=== PATIENT | female | born 1975 | race Caucasian/White ===

== ENCOUNTER 2022-09-08 18:37 | Emergency (ER) | payer SELFPAY ==
[~2022-09-08] VITALS: Ht 182 cm; Wt 100.0 kg
[2022-09-08] MEDS ORDERED: NS IV 1000 ML 1,000 ML IV STA ×2 (19:00→20:02)
[2022-09-08] MEDS ORDERED: ONDANSETRON 4 MG/2 ML (SDV) Z0FRAN IVP ONE (19:00)
--- NOTE | 2022-09-08 19:04 | ED General ---
General Chief Complaint: Substance Abuse Stated Complaint: COMING DOWN FROM DRUGS Nursing Triage Note: PT AMB TO [facility] PT CO OF USING POT AND METH TWICE THIS WEEK, STATES FEEL FACE REDDEND. PT CRYING, STATES NOT ABLE TO BEAT ADDICTION. PT IS AT [facility]. PT STATES SOMETHING IN METH STATES DIDNT TASTE THE SAME. PT WAS NOT ABLE TO STAY AT [facility] FOR 2 DAYS. Source of Information: Patient Exam Limitations: No Limitations History of Present Illness Date Seen by Provider: Sep 08, 2022 Time Seen by Provider: 18:50 Initial Comments Patient is a 47yo female who presents to the ER with concern of her meth "having something else in it" that she had last night and early this morning. SHe sta juan that she has recently "fallen off the wagon" and is scheduled to go into [facility] next week. Also complaining of lower abdominal discomfort and painful urination, having a hard time going. She denies F/C/N/V/D. No chest pain or SOB. No abnormal vaginal discharge. [facility] the [facility]". Timing/Duration: 2-3 Days (abdominal discomfort) Severity: Moderate Associated Systoms: Loss of Appetite, Malaise, Other (decreased appetite) Allergies and Home Medications Allergies Coded Allergies: Penicillins (Verified Allergy, Unknown, 09/08/22) latex (Verified Allergy, Unknown, 09/08/22) Patient Home Medication List Home Medication List Reviewed: Yes Review of Systems Review of Systems Constitutional: see HPI EENTM: no symptoms reported Respiratory: no symptoms reported Cardiovascular: no symptoms reported Gastrointestinal: abdominal pain Genitourinary: dysuria, hesitancy Musculoskeletal: no symptoms reported Psychiatric/Neurological: Anxiety All Other Systems Reviewed Negative Unless Noted: Yes Past Lsgowcy-Ivudhe-Auupdh Hx Patient Social History Tobacco Use?: No Use of E-Cig and/or Vaping dev: No Substance use?: Yes Substance type: Methamphetamine, Marijuana Additional substance use comme: IMBOLMING FLUID AND WET Substance frequency: Couple times a week Alcohol Use?: Yes Pt feels they are or have been: No Immunizations Up To Date Influenza Vaccine Up-to-Date: No; Not Current First/Initial COVID19 Vaccinat: YES Second COVID19 Vaccination Maximiliano: YES Third COVID19 Vaccination Date: YES Past Medical History Surgery/Hospitalization HX: C-SECTIONS X 3, ABLATION UTERUS Physical Exam Vital Signs Vital Signs - First Documented 09/08/22 09/08/22 18:44 21:49 Temp 36.5 Pulse 101 Resp 16 B/P (MAP) 193/100 (131) Pulse Ox 99 O2 Delivery Room Air Capillary Refill : Less Than 3 Seconds Height, Weight, BMI Height: '" Weight: lbs. oz. kg; 30.00 BMI Method: General Appearance: No Apparent Distress, WD/WN Eyes: Bilateral Eye Normal Inspection HEENT: PERRL/EOMI Neck: Full Range of Motion, Normal Inspection Respiratory: Lungs Clear, Normal Breath Sounds, No Accessory Muscle Use, No Respiratory Distress Cardiovascular: Regular Rate, Rhythm Gastrointestinal: Soft, Tenderness (suprapubic) Extremity: Normal Inspection, Normal Range of Motion, Non Tender, No Calf Tenderness, No Pedal Edema Neurologic/Psychiatric: Alert, Oriented x3, No Motor/Sensory Deficits, Normal Mood/Affect, animal husbandman II-XII Norm as Tested Skin: Normal Color, Warm/Dry Progress/Results/Core Measures Suspected Sepsis SIRS Temperature: Pulse: 101 Respiratory Rate: 16 Laboratory Tests 09/08/22 09:10: White Blood Count 7.7 Blood Pressure 193 /100 Mean: 131 Laboratory Tests 09/08/22 09:10: Creatinine 1.06, Platelet Count 374 Results/Orders Lab Results Laboratory Tests Test 09/08/22 09:10 09/08/22 21:06 Range/Units White Blood Count 7.7 4.3-11.0 10^3/uL Red Blood Count 3.90 3.80-5.11 10^6/uL Hemoglobin 11.8 11.5-16.0 g/dL Hematocrit 34 L 35-52 % Mean Corpuscular Volume 88 80-99 fL Mean Corpuscular Hemoglobin 30 25-34 pg Mean Corpuscular Hemoglobin Concent 35 32-36 g/dL Red Cell Distribution Width 14.2 10.0-14.5 % Platelet Count 374 130-400 10^3/uL Mean Platelet Volume 8.9 L 9.0-12.2 fL Immature Granulocyte % (Auto) 0 % Neutrophils (%) (Auto) 52 42-75 % Lymphocytes (%) (Auto) 38 12-44 % Monocytes (%) (Auto) 5 0-12 % Eosinophils (%) (Auto) 4 0-10 % Basophils (%) (Auto) 1 0-10 % Neutrophils # (Auto) 4.0 1.8-7.8 10^3/uL Lymphocytes # (Auto) 2.9 1.0-4.0 10^3/uL Monocytes # (Auto) 0.4 0.0-1.0 10^3/uL Eosinophils # (Auto) 0.3 0.0-0.3 10^3/uL Basophils # (Auto) 0.1 0.0-0.1 10^3/uL Immature Granulocyte # (Auto) 0.0 0.0-0.1 10^3/uL Sodium Level 138 135-145 MMOL/L Potassium Level 4.0 3.6-5.0 MMOL/L Chloride Level 108 H 98-107 MMOL/L Carbon Dioxide Level 21 21-32 MMOL/L Anion Gap 9 5-14 MMOL/L Blood Urea Nitrogen 14 7-18 MG/DL Creatinine 1.06 0.60-1.30 MG/DL Estimat Glomerular Filtration Rate 66 BUN/Creatinine Ratio 13 Glucose Level 217 H 70-105 MG/DL Calcium Level 9.8 8.5-10.1 MG/DL Urine Color YELLOW Urine Clarity SL CLOUDY Urine pH 6.0 5-9 Urine Specific [place] >=1.030 1.016-1.022 Urine Protein TRACE H NEGATIVE Urine Glucose (UA) 2+ H NEGATIVE Urine Ketones TRACE H NEGATIVE Urine Nitrite NEGATIVE NEGATIVE Urine Bilirubin NEGATIVE NEGATIVE Urine Urobilinogen 0.2 < = 1.0 MG/DL Urine Leukocyte Esterase NEGATIVE NEGATIVE Urine RBC (Auto) NEGATIVE NEGATIVE Urine RBC 2-5 H /HPF Urine WBC RARE /HPF Urine Squamous Epithelial Cells 10-25 H /HPF Urine Crystals NONE /LPF Urine Bacteria FEW H /HPF Urine Casts NONE /LPF Urine Mucus MODERATE H /LPF Urine Culture Indicated NO My Orders Orders - JERO SOARES MD Ed Iv/Invasive Line Start (09/08/22 19:00) Cbc With Automated Diff (09/08/22 19:00) Basic Metabolic Panel (09/08/22 19:00) Ua Culture If Indicated (09/08/22 19:00) Urine Bedside (09/08/22 19:00) Ns Iv 1000 Ml (Sodium Chloride 0.9%) (09/08/22 19:00) Ondansetron Injection (Zofran Injectio (09/08/22 19:00) Ns Iv 1000 Ml (Sodium Chloride 0.9%) (09/08/22 20:02) Lisinopril Tablet (Zestril Tablet) (09/08/22 21:00) Medications Given in ED Current Medications Medications Dose Ordered Sig/Wilfrido Route Start Time Stop Time Status Last Admin Dose Admin Lisinopril 40 mg ONCE ONCE PO 09/08/22 21:00 09/08/22 21:01 DC 09/08/22 21:02 40 MG Ondansetron HCl 4 mg ONCE ONCE IVP 09/08/22 19:00 09/08/22 19:02 DC 09/08/22 19:12 4 MG Vital Signs/I&O 09/08/22 09/08/22 18:44 21:49 Temp 36.5 36.6 Pulse 101 74 Resp 16 16 B/P (MAP) 193/100 (131) 160/84 Pulse Ox 99 99 O2 Delivery Room Air 09/09/22 00:00 Intake Total 2000 ml Balance 2000 ml Capillary Refill : Less Than 3 Seconds Blood Pressure Mean: 131 Progress Note : Time: 21:40 Progress Note Patient seen and evaluated, evaluation today includes physical exam, CBC, chemistry and urinalysis. Patient's physical exam pertinent for mild suprapubic tenderness to palpation. Normal bowel sounds, no involuntary guarding or rebound. Heart is regular, lungs are clear. Vital signs are stable. Diffe rential diagnosis based on history and physical urinary tract infection, enteritis, effective methamphetamine, anxiety. Patient treated with normal saline x2 L and Zofran for nausea. She is also given a dose of her lisinopril 40 mg as she has not been taking it recently and her blood pressure is a little high. Labs reviewed, CBC is normal, chemistry is normal urinalysis does not reveal infection. Patient is reassured that she has no evidence of infection today. She feels better after fluids. No evidence of any findings that would require inpatient admission. She is encouraged to keep her appointment with [facility] next week. Return precautions are provided. All questions are sought and answered. Patient is stable for discharge. Departure Impression Primary Impression: Drug reaction Qualified Codes: T50.905A - Adverse effect of unspecified drugs, medicaments and biological substances, initial encounter Disposition: HOME, SELF-CARE Condition: Stable Departure-Patient Inst. Decision time for Depature: 21:44 Referrals: [facility] (PCP/Family) Primary Care Physician Patient Instructions: ALCOHOL AND SUBSTANCE ABUSE Add. Discharge Instructions: You need to take your daily medications as prescribed. It is very important that you keep good control of your high blood pressure. Keep your appointment for drug detox at [facility] next week. You can take [id number] Tylenol or ibuprofen as needed for the lower abdominal discomfort. If you develop a fever, burning with urination or any other emergent, concerning symptoms please return to the emergency room or follow-up with your primary care at [facility]. [facility] [address] [place] [address] Copy Copies To 1: ARON LEMUS KATHRYN M MD Sep 08, 2022 19:04
[2022-09-08 19:19] LABS: BASOPHILS # (AUTO) 0.1 10^3/uL (0.0-0.1); BASOPHILS % (AUTO) 1 % (0-10); EOSINOPHILS # (AUTO) 0.3 10^3/uL (0.0-0.3); EOSINOPHILS % (AUTO) 4 % (0-10); HEMATOCRIT 34 % (35-52); HEMOGLOBIN 11.8 g/dL (11.5-16.0); LYMPHOCYTES # (AUTO) 2.9 10^3/uL (1.0-4.0); LYMPHOCYTES % (AUTO) 38 % (12-44); MEAN CORPUSCULAR HEMOGLOBIN 30 pg (25-34); MEAN CORPUSCULAR HGB CONC 35 g/dL (32-36); MEAN CORPUSCULAR VOLUME 88 fL (80-99); MEAN PLATELET VOLUME 8.9 fL (9.0-12.2); MONOCYTES # (AUTO) 0.4 10^3/uL (0.0-1.0); MONOCYTES % (AUTO) 5 % (0-12); NEUTROPHILS % (AUTO) 52 % (42-75); PLATELET COUNT 374 10^3/uL (130-400); WHITE BLOOD COUNT 7.7 10^3/uL (4.3-11.0)
[2022-09-08 20:00] LABS: CALCIUM 9.8 MG/DL (8.5-10.1); CREATININE SERUM 1.06 MG/DL (0.60-1.30)
[2022-09-08] MEDS ORDERED: lisINopril 20 MG (PRINIVIL) TABLET PO ONE (21:00)
[2022-09-08 21:15] LABS: BILIRUBIN,URINE NEGATIVE (NEGATIVE); CLARITY,URINE SL CLOUDY; COLOR,URINE YELLOW; GLUCOSE, URINE (UA) 2+ (NEGATIVE); KETONES,URINE TRACE (NEGATIVE); LEUKOCYTE ESTERASE ,URINE NEGATIVE (NEGATIVE); NITRITE,URINE NEGATIVE (NEGATIVE); PROTEIN,URINE TRACE (NEGATIVE)
[2022-09-08 21:41] LABS: BACTERIA,URINE FEW /HPF; WBC,URINE RARE /HPF
[2022-09-08 21:49] VITALS: BP 160/84
== END 2022-09-08 21:51 | disposition home or self-care (01) ==
LOC: ER 18:40
DX: R10.30 Lower abdominal pain, unspecified (principal); T50.905A Adverse effect of unspecified drugs, medicaments and biological substances, initial encounter; I10 Essential (primary) hypertension; Z91.040 Latex allergy status; Z79.899 Other long term (current) drug therapy
CPT/HCPCS: 36415; 80048; 81000; 84703; 85025